=== PATIENT | female | born 1990 | race African-American/Black ===

== ENCOUNTER 2018-03-03 16:56 | Emergency (ER) | payer OTHER ==
[~2018-03-03] VITALS: Ht 170.2 cm; Wt 67.0 kg
[2018-03-03 16:59] VITALS: BP 142/84
[2018-03-03] MEDS ORDERED: KETOROLAC 60MG/2ML VIAL IM ONE (18:30)
== END 2018-03-03 19:10 | disposition home or self-care (01) ==
LOC: ER 17:09
DX: S10.93XA Contusion of unspecified part of neck, initial encounter (principal); M79.1 Myalgia; F17.200 Nicotine dependence, unspecified, uncomplicated; V49.88XA Car occupant (driver) (passenger) injured in other specified transport accidents, initial encounter; Y93.89 Activity, other specified; Y92.89 Other specified places as the place of occurrence of the external cause; Y99.8 Other external cause status
CPT/HCPCS: 96372; 99283; J1885